=== PATIENT | male | born 1980 | race African-American/Black ===

== ENCOUNTER → 2017-05-08 | Outpatient (CLI) | payer BC ==
--- NOTE | 2017-05-08 16:02 | RAD ---
Examination: MRI of the right shoulder without contrast HISTORY: History of pain in the right shoulder from lifting COMPARISON: None available TECHNIQUE: Multiplanar, multisequence MR imaging of the right shoulder were performed without contrast FINDINGS: The long head of the biceps tendon is within the bicipital groove. The long head of the biceps tendon to superior labrum grossly appears intact. The alignment of the subscapularis tendon, supraspinatus, infraspinatus tendon grossly appears intact. There is mild increased signal identified in the supraspinatus, infraspinatus tendon likely mild tendinosis. 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 Mild degenerative changes acromioclavicular joint. The acromion is type II. The muscle bulk grossly appears unremarkable. 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 Mild degenerative changes glenohumeral joint. IMPRESSION: 1. 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 2. 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 3. Mild degenerative changes glenohumeral joint and acromioclavicular joint. 4. Mild tendinosis supraspinatus, infraspinatus tendons. Electronically signed by: Thomas Chavarria MD (05/08/2017 3:58 PM) [id number]
== END | disposition home or self-care (01) ==
LOC: MRI 13:16
PROVIDERS: ATTEND Family Medicine
DX: M19.011 Primary osteoarthritis, right shoulder (principal); M75.81 Other shoulder lesions, right shoulder
CPT/HCPCS: 73221